=== PATIENT | male | born 1950 | race Caucasian/White ===

== ENCOUNTER 2016-12-22 21:16 | Emergency (ER) | payer MEDICARE, BC ==
[~2016-12-22] VITALS: Ht 175.3 cm; Wt 124.7 kg
[~2016-12-22 21:16] MED LIST: COREG12.5 MG PO; CURCUMIN250 GM PO; FISH OIL 1,2001 EACH PO; HYDROCHLOROTHIA25 MG PO; LASIX20 M1 PO; RED YEAST RICE600 M1 PO; SYNTHROID175 MCG PO; THERA M PLUS T1 EACH PO; ULTRAM50 MG PO
[2016-12-22] MEDS ORDERED: GLUCOSAMINE1000 MG PO (21:39)
[2016-12-22] MEDS ORDERED: ALLOPURINOL300 MG PO (21:40)
[2016-12-22] MEDS ORDERED: LOTENSIN40 MG PO (21:40)
[2016-12-22] MEDS ORDERED: ZOCOR40 MG PO (21:41)
== END 2016-12-22 23:05 | disposition short-term general hospital (02) ==
LOC: ER 21:16
DX: I10 Essential (primary) hypertension (principal); J32.9 Chronic sinusitis, unspecified; E78.5 Hyperlipidemia, unspecified; M10.9 Gout, unspecified; E03.9 Hypothyroidism, unspecified; Z79.899 Other long term (current) drug therapy
CPT/HCPCS: J1885